=== PATIENT | male | born 1985 | race African-American/Black ===

== ENCOUNTER 2017-02-06 21:24 | Emergency (ER) | payer MEDICAID ==
[~2017-02-06] VITALS: Ht 185.4 cm; Wt 95.3 kg
--- NOTE | 2017-02-06 22:18 | Emergency Room Report ---
History of Present Illness General Chief Complaint: Lower Extremity Injury Source: Patient Present Illness HPI 31-year-old male walks in with pain to right pinkie toe after accidentally hit ice his daughter ramakrishna Obvious deformity to left pinky displaced laterally Patient denies pain to anywhere else on for ankle Previous injury to toe Allergies: Coded Allergies: No Known Allergies (Unverified , 02/06/17) Patient History Past Medical History: none Past Surgical History: none Pertinent Family History: none Social History: Denies: smoking, alcohol use, drug use Immunizations: UTD Reviewed Nursing Documentation: PMH: Agreed, PSxH: Agreed Nursing Documentation-PMH Past Medical History: No Stated History Review of Systems All Other Systems: negative except mentioned in HPI Physical Exam Vital Signs Date Time Temp Pulse Resp B/P (MAP) Pulse Ox O2 Delivery O2 Flow Rate FiO2 02/06/17 21:38 98.1 91 12 122/71 94 Room Air Sp02 EP Interpretation: reviewed, normal General Appearance: normal inspection, well appearing, no apparent distress, alert Head: atraumatic ENT: normal ENT inspection, hearing grossly normal, normal voice Neck: normal inspection, full range of motion, supple, no bony tend Respiratory: normal inspection, lungs clear, normal breath sounds, no respiratory distress, no retraction, no wheezing Cardiovascular #1: regular rate, rhythm, no edema Gastrointestinal: normal inspection, normal bowel sounds, non tender, soft, no guarding, no hernia Genitourinary: no CVA tenderness Musculoskeletal: normal inspection, back normal, normal range of motion, Michelle' s Sign negative, other - right foot: obvious lateral displacement of right pinkie toe. Tenderness to base of toe. Neurologic: normal inspection, alert, responsive, speech normal Psychiatric: normal inspection, judgement/insight normal, mood/affect normal Skin: normal inspection, normal color, no rash Procedures Joint Reduction Joint Reduction : Consent: Verbal Joint Reduction Site: other - Left fifth toe Procedural Sedation: No Reduction Attempts: One Pre-Procedure NV Exam: Yes Post-Procedure NV Exam: Yes Post Joint Reduction Film: joint reduced Patient Tolerated: Well Complications: None Progress Lidocaine injected to base of left 5th toe Pressure applied outward and laterally to base of left toe Successful reduction Medical Decision Making Diagnostic Impression: Primary Impression: Toe fracture, right Qualified Codes: S92.511A - Displaced fracture of proximal phalanx of right lesser toe(s), initial encounter for closed fracture ER Course 31-year-old male with displaced fracture of proximal phalanx of right little toe Now status post reduction in ER Don tape to index toe, hard boot provided, crutches provided Advised nonweightbearing, RICE, [facility] or orthopedics followup in one week ER course: Patient has remained stable during ED stay. Patient is to be discharged to home. Prescriptions given are motrin Patient is instructed to follow up with orthopedist in 1 week Strict return precautions discussed with patient such as fever, chills, worsening/severe pain, nausea, vomiting, which may indicate severe illness. Patient verbalizes understanding and agrees with plan. Please note that this Emergency Department Report was dictated using [employer] engineer technology software, occasionally this can lead to erroneous entry secondary to interpretation by the dictation equipment Other X-Ray Diagnostic Results Other X-Ray Diagnostic Results #1: X-Ray ordered: left foot # of Views/Limited Vs Complete: 3 View Indication: Pain EP Interpretation: Yes Interpretation: no soft tissue swelling, other - Left 5th toe prox phalange fracture, displaced Electronically Signed by: Dr Saeed Ramirez MD Other X-Ray Diagnostic Results #2: X-Ray ordered: Right foot # of Views/Limited Vs Complete: 3 View Indication: Pain EP Interpretation: Yes Interpretation: no dislocation, no soft tissue swelling, other - S/p reduction of fx of proximal phalanx 5th toe Electronically Signed by: Dr Saeed Ramirez MD Last Vital Signs Date Time Temp Pulse Resp B/P (MAP) Pulse Ox O2 Delivery O2 Flow Rate FiO2 02/06/17 21:38 98.1 91 12 122/71 94 Room Air Status: improved Disposition: HOME, SELF-CARE SAEED RAMIREZ M.D. Feb 06, 2017 22:18
[2017-02-06] MEDS ORDERED: IBUPROFEN600 MG ORAL (22:45)
[2017-02-06 22:59] VITALS: BP 144/79
--- NOTE | 2017-02-07 15:17 | Diagnostic Imaging Report ---
Indication: Pain Technique: XRAY FOOT MIN 3V RIGHT Comparison: None Findings: There is an acute, nondisplaced and angulated fracture of the fifth proximal phalanx there is overlying soft tissue spine. No additional fracture identified. No rib deformity seen. Impression: Acute, mildly displaced and angulated fracture of the fifth proximal phalanx.
--- NOTE | 2017-02-07 15:23 | Diagnostic Imaging Report ---
Indication: Fracture status post reduction. Technique: XRAY FOOT MIN 3V RIGHT Comparison: Earlier the same day. Findings: Interval reduction of the previously seen fracture of the fifth proximal phalanx with improved alignment status post reduction. Mild residual lateral displacement of the distal fracture fragment persists. Echotexture. Impression: Interval improved alignment status post reduction. No additional fracture.
== END 2017-02-06 22:59 | disposition home or self-care (01) ==
LOC: EMR 22:00
DX: S92.511A Displaced fracture of proximal phalanx of right lesser toe(s), initial encounter for closed fracture (principal); W22.8XXA Striking against or struck by other objects, initial encounter; Y92.019 Unspecified place in single-family (private) house as the place of occurrence of the external cause
CPT/HCPCS: 28515; 73630; 99283; Z7502